=== PATIENT | female | born 1995 | race Caucasian/White ===

== ENCOUNTER 2025-07-31 11:01 | Emergency (ER) | payer OTHER, SELFPAY ==
--- NOTE | ~2025-07-31 | XR_ITS ---
EXAMINATION: XR chest 2V, 07/31/2025 11:36 CDT HISTORY: dyspnea, r sided cp, SOB x 2 days COMPARISON: No comparisons available. Technique: 2 views obtained. Findings: The lungs are clear, no effusion. No pneumothorax. Heart is normal size. Mediastinal and hilar contours are within normal limits. Bony thorax no acute abnormality. Impression: No acute cardiopulmonary abnormality. Reviewed, dictated and finalized at location P. Impression: No acute cardiopulmonary abnormality.
--- NOTE | 2025-07-31 11:16 | ECG_ITS ---
Test Date: 2025-07-31 11:27:58 Measurements Intervals [place] Rate: 73 P: 63 CO: 132 QRS: 72 QRSD: 94 T: 35 QT: 361 QTc: 399 Interpretive Statements SINUS RHYTHM MINIMAL Q WAVES- INF/LAT LEADS BASELINE ARTIFACT- I, II, III, AVR, AVL, AVF BORDERLINE ECG No previous ECG available for comparison Electronically Signed On 07-31-2025 11:47:11 CDT by Alon Rocha D.O.
[2025-07-31 11:33] VITALS: BP 128/80; PULSE 83; RESP 16; TEMP 36.6; O2SAT 100
--- NOTE | 2025-07-31 11:35 | ED.CHESTPAIN ---
HPI - Chest Pain General Chief Complaint: Upper Respiratory Infection Stated Complaint: CHEST PAIN/SOB/COUGH/CONGESTION Time Seen by Provider: 07/31/25 11:35 Source: patient and RN notes reviewed Mode of arrival: ambulatory Limitations: no limitations History of Present Illness HPI narrative: 30-year-old female presents Express Care complaining of chest pain shortness of breath that started yesterday. Patient noticed right-sided chest pain as worse with a deep breath. Patient also noticed that she is becoming short of breath going up and down stairs which is not normal for her. Patient also reports may be a slight cough and congestion. Patient denies any nausea, vomiting, diarrhea, runny nose, sore throat, earache, fevers, eczema chills or any other symptoms. Patient denies any recent traveling or major surgeries. Patient does take control. Patient denies any significant past medical history. Related Data Allergies Allergy/AdvReac Type Severity Reaction Status Date / Time No Known Allergies Allergy Verified 07/31/25 11:17 Review of Systems Review of Systems: CONSTITUTIONAL: Denies fever, body aches, chills, or sweats. EYES: Denies visual changes, redness, or discharge. ENT: Denies rhinorrhea, sore throat, or otalgia. Positive for congestion. CARDIOVASCULAR: Positive for chest pain. Negative for dizziness, lightheadedness, Palpitations, or edema. RESPIRATORY: Positive for dyspnea with exertion and cough. GASTROINTESTINAL: Denies abdominal pain, nausea, vomiting, or diarrhea. GENITOURINARY: Denies dysuria or hematuria. SKIN: Denies rash or itching. MUSCULOSKELETAL: Denies back pain, joint pain, or myalgia. NEUROLOGIC: Denies headache, numbness, or weakness. PSYCHIATRIC: Denies anxiety or depression. All other systems reviewed are negative, except as documented in HPI. PMFSH Comments At the time of my signature, I reviewed and agree with the nursing past medical, surgical, social, and family history. There is no relevant family history pertinent to the patient complaint. Exam Narrative: GENERAL: This is a well-nourished, well-developed adult, in no apparent distress. They are non ill-appearing, nontoxic appearing. HEAD: normocephalic, atraumatic. EYES: Sclera clear/white. Conjunctiva normal. Vision is grossly intact. Extraocular movements intact EARS: External ears normal, auditory canals clear and without drainage, TMs normal without perforation. Hearing grossly intact. NOSE: External nose normal with no obvious nasal discharge, nasal turbinates without redness, no rhinorrhea. THROAT: Mucous membranes moist, posterior pharynx clear, without erythema or swelling. Uvula midline. Cobblestone appearing. NECK: Neck supple, non-tender without lymphadenopathy, masses or thyromegaly. CARDIOVASCULAR: Regular rate and rhythm without murmurs, gallops, or rubs. RESPIRATORY: Clear to auscultation. Breath sounds equal bilaterally. No wheezes, rales, or rhonchi. SKIN: warm, Dry, intact with no suspicious lesions or rash, good texture and turgor. NEURO: awake, alert, and oriented to person, place and time. There were no obvious focal neurologic abnormalities. EXTREMITIES: No joint tenderness, effusion, or edema noted. BACK: Nontender without deformity. No CVA tenderness. Course Course Emergency Course: Portions of this record may have been created with voice recognition software Level of Care: Express Care Visit Vital Signs Vital signs: Vital Signs Oxygen Delivery Room Air 07/31/25 11:19 Temperature 97.9 F 07/31/25 11:33 Pulse Rate 83 07/31/25 11:33 Respiratory Rate 16 07/31/25 11:33 Blood Pressure 128/80 07/31/25 11:33 Pulse Oximetry 100 07/31/25 11:33 Oxygen Delivery Room Air 07/31/25 11:19 Reviewed Transfer Transfered to: [facility] Transportation: Other (private vehicle) Transfer rationale: Patient requires higher level care, rule out pulmonary embolism have advanced imaging, lab work. Accepting physician: Dr. Andrade MDM - Chest Pain MDM Narrative Medical decision making narrative: EKG sinus rhythm with no ischemic findings. Chest x-ray shows negative for any acute cardiopulmonary findings. Rapid COVID in flu are negative. Postnasal drip noted, no convincing evidence to explain patient's symptoms. Perc score 1. Patient takes estrogen based control. No tachycardia. Cannot rule out pulmonary embolism for this patient. Given patient's symptoms, it is recommend the patient seek a higher level care and proceed immediately to the emergency department. Patient is agreeable at [facility]. Called over to [facility] spoke to Dr. Andrade who is aware this patient and accepted the patient for transfer. Patient would go via private vehicle. Patient hemodynamically stable take herself to the hospital. Advised patient remain NPO proceed immediately to the ER. Differential Diagnosis Differential diagnosis: Likely fracture of rib, pneumothorax, stable angina, chest pain and other (Pneumothorax) Lab Data Attestation: I reviewed the patient's lab results. Labs: Lab Results 07/31/25 Range/Units 11:51 POC Influenza A Ag Negative (Negative) POC Influenza B Ag Negative (Negative) POC SARS CoV-2 Ag Negative (Negative) ECG Data EKG #1: Attestation: I personally reviewed and interpreted this ECG as follows: ECG completion date: 07/31/25 ECG completion time: 11:27 Prior ECG tracings: not available for review EKG Interpretation: normal rate, no ectopy, no ST changes, normal QRS, normal QT and NL axis Critical Care Time Critical Care Time Critical Care Time: No Discharge Plan Discharge Clinical Impression: Dyspnea on exertion Chest pain Qualifiers: Chest pain type: unspecified Qualified Code(s): R07.9 - Chest pain, unspecified Patient Disposition: Acute Care Hospital Condition: Stable Patient Language: Chilean Follow-up/Referrals: Mando,MD Mikel [Primary Care Provider] Time of Disposition: 12:06
[2025-07-31 11:55] LABS: EDCOVIDSCREEN Negative (Negative); EDINFLUASCREEN Negative (Negative); EDINFLUBSCREEN Negative (Negative)
== END 2025-07-31 12:13 | disposition short-term general hospital (02) ==
PROVIDERS: PCP Internal Medicine
DX: R06.00 Dyspnea, unspecified (principal); R07.9 Chest pain, unspecified; Z20.822 Contact with and (suspected) exposure to COVID-19
CPT/HCPCS: 71046; 87426; 87804; 93005; 99213; G0463

== ENCOUNTER 2025-07-31 12:30 | Emergency (ER) | payer OTHER, SELFPAY ==
--- NOTE | ~2025-07-31 | XR_ITS ---
EXAMINATION: XR chest 2V, 07/31/2025 13:00 CDT HISTORY: RIGHT SIDE CHEST PAIN AND SOB SINCE YESTERDAY, ASTHMA COMPARISON: No comparisons available. Technique: 2 views obtained. Findings: The lungs are clear, no effusion. No pneumothorax. Heart is normal size. Mediastinal and hilar contours are within normal limits. Bony thorax no acute abnormality. Impression: No acute cardiopulmonary abnormality. Reviewed, dictated and finalized at location P. Impression: No acute cardiopulmonary abnormality.
[2025-07-31 12:35] VITALS: BP 135/88; PULSE 76; RESP 19; TEMP 36.8; O2SAT 100
[2025-07-31 12:41] VITALS: O2SAT 100
[2025-07-31 12:42] VITALS: BP 135/88; PULSE 76; RESP 16; TEMP 36.8; O2SAT 100
--- NOTE | 2025-07-31 12:44 | ECG_ITS ---
Test Date: 2025-07-31 12:39:30 Measurements Intervals [place] Rate: 76 P: 101 [place]: 120 QRS: 86 QRSD: 90 T: 74 QT: 339 QTc: 383 Interpretive Statements SINUS RHYTHM NONSPECIFIC ST & T-WAVE ABNORMALITY- ANT/INF LEADS BASELINE ARTIFACT- I, III, AVL BORDERLINE ECG Compared to ECG 07/31/2025 11:27:58 NO SIGNIFICANT CHANGE Electronically Signed On 07-31-2025 13:32:48 CDT by Alon Rocha D.O.
[2025-07-31 13:00] LABS: Hematocrit 38.1 % (37.0-47.0); Hemoglobin 12.7 g/dL (12.0-15.0); Immature Granulocyte Percent A 0.2 % (0-0.5); Lymphocytes Absolute Auto 2.31 K/mm3 (0.9-3.2); Mean Corpuscular HGB Conc 33.3 g/dl (32-36); Mean Corpuscular Hemoglobin 28.3 pg (26-34); Mean Corpuscular Volume 85.0 fl (80-100); Nucleated Red Blood Cells Absolute Auto 0.000 K/mm3 (0.0-0.012); Nucleated Red Blood Cells Perc 0.0 % (0.0-0.2); Platelet Count Result 341 k/mm3 (150-375); Red Blood Count 4.48 M/mm3 (4.2-5.4); White Blood Count 6.2 K/mm3 (4.5-10.0)
[2025-07-31 13:12] LABS: INR 1.1; Partial Thromboplastin Time 27.3 Seconds (22.3-36.8); Prothrombin Time 13.9 Seconds (11.1-14.7)
--- OUTSIDE RECORDS SUMMARY | 2025-07-31 13:20 | XMS_ITS | Clinical Summary ---
Author Organization [facility] Address [address] [place] [address] Care Team Providers Care Coating Supervisor Name Role Phone Provider, Not On File Primary Care Provider Unav ailable Allergies No known active allergies Medications azithromycin (Zithromax) 250 MG Tablet Take 250 mg by mouth daily. 2 tab(s) daily for 1 day, then 1 tab(s) daily for days 2-5. Active Ibuprofen (Advil) 200 MG Capsule Take by mouth. Activ e methylPREDNISol one (MEDROL DOSPACK) 4 MG Tablet Therapy PackIndications :Sacroiliac pain Use as per instructions on package. 21 Tablet 4 Active Active Problems No known active problems Social History Tobacco Use Types Packs/Day Years Used Date Smoking Tobacco: Never Smokeless Tobacco: Never Tobacco Cessation:Counseling Given: Not Answered Alcohol Use Standard Drinks/Week Comments Not Currently 0 (1 standard drink = 0.6 oz pur e alcohol) Comments No Sex and Gender Information Value Date Recorded Sex Assigned at Not on file Legal Sex Female 11:06 AM [employer] INTER[employer] Gender Identity Not on file Sexual Orientation Not on file Last Filed Vital Signs Vital Sign Reading Time Taken Comments Blood Pressure 115/76 03/14/2024 3:23 PM CDT Pulse 78 03/14/2024 3:23 PM CDT Temperature 36.8 C (98.2 F) 03/14/2024 3:23 PM CDT Respiratory Rate 16 03/14/2024 3:23 PM CDT Oxygen Saturation 98% 03/14/2024 3:23 PM CDT Inhaled Oxygen Concentration - - Weight 65.8 kg (145 lb) 03/14/2024 3:23 PM CDT Height 157.5 cm (5' 2) 09/27/2022 11:34 AM FINANCIAL INTERNSHIP Body Mass Index 26.52 09/27/2022 11:34 AM [employer]CIAL INTERNS[employer]IP Plan of Treatment Health Maintenance Due Date Last Done Comments Hepatitis C Virus (HCV) Screening 1995 TdaP Immunization 1995 Hepatitis B Immunization (1 of 3 - 19+ 3-dose series) 2014 Pap Smear 02/13/2016 Human Papillomavirus (HPV) Immunization (1 - 3-dose SCDM series) 2022 Cervical Cancer Screening (CCS) 2025 HPV/Cotest 2025 Influenza Immunization (#1) 2025 SARS-COV-2 Immunization ( - season) 2025 Respiratory Syncytial Virus (RSV) Immunization (Adult) (1 - 1-dose 75+ series) 2070 Meningococcal Immunization (ACWY) Aged Out No longer eligible based on patient's age to complete this topic Pneumococcal Immunization Combined Aged Out No longer eligible based on patient's age to complete this topic Rotavirus Immunization Aged Out No lo nger eligible based on patient's age to complete this topic Insurance [address] [place] [address] [employer] SOI Care Teams Coating Supervisor Relationship Specialty Start Date End Date Provider, Not On File [place] PCP - General 03/14/24
--- OUTSIDE RECORDS SUMMARY | 2025-07-31 13:20 | XMS_ITS | Clinical Summary ---
Author Organization [facility] Address [address] [place] [address] Care Team Providers Care Dental Financial Coordinator Name Role Phone Mikel Gilmore MD Primary Care Provider [phone] Source Comments [facility],non-owned Affiliates and Associated Physician Practices is amultiple site organization consisting of ambulatory clinics and hospital sitesin [place], [place] and [place]. This disclosure is being madepursuant to the Care Everywhere program and may not contain all information available regarding this patient. Last updated 18.[facility] Allergies No known active allergies Medications * Be aware that medications may not be up to date on this document. Alwaysverify current medications with the patient. norgestimate-eth inyl estradiol (Ortho-Cyclen; Mononessa; Previfem; Sprintec) 0.25-35 MG-MCG tablet Take 1 (one) tablet by mouth once daily 84 tablet 4 03/08/2025 Active Active Problems Problem Noted Date Diagnosed Date Vitamin D deficiency 12/29/2023 02/28/2024 Overview (02/28/2024): Last Assessment & Plan: Level is low. Start on high-dose vitamin-D 07109 units oral weekly for 6 weeks and oral vitamin-D daily 5000 units with dinner thereafter. Chronic sinusitis 06/24/2015 02/28/2024 Overview (02/28/2024): Chronic sinusitis History of menorrhagia 02/06/2013 Gastroesophageal reflux disease 03/10/2010 02/28/2024 Overview (02/28/2024): Overview: Mild - taking prevacid. Sees GI @ [facility] Last Assessment & Plan: Stable. Continue on Protonix 20 mg oral daily before bedtime. Anemia 11/25/2009 02/28/2024 Overview (02/28/2024): Overview: low Hb at GI visit for reflux Premenopausal menorrhagia 10/30/20092023 DUB (dysfunctional uterine bleeding) 09/24/2008 02/28/2024 Acne 10/25/2007 02/28/2024 Family History Medical History Relation Name Comments High Cholesterol Father Diabetes - Type 2 Maternal Grandmother CAD (Coronary Artery Disease) Paternal Grandfather Relation Name Status Comments Father Maternal Grandmother Paternal Grandfather Social History Tobacco Use Types Packs/Day Years Used Date Smoking Tobacco: Never Smokeless Tobacco: Never Tobacco Cessation:Counseling Given: Not Answered Alcohol Use Standard Drinks/Week Comments Not Currently 0 (1 standard drink = 0.6 oz pur e alcohol) PHQ-2 Answer Date Recorded Patient Health Questionnaire-2 Score 0 03/06/2025 Comments No Sex and Gender Information Value Date Recorded Sex Assigned at Female 04/10/2022 7:33 PM CDT Legal Sex Female 5:44 AM PROCEDURES TECH Gender Identity Female 04/10/2022 7:33 PM CDT Sexual Orientation Lesbian 04/10/2022 7: 33 PM CDT Last Filed Vital Signs Vital Sign Reading Time Taken Comments Blood Pressure 132/78 03/08/2025 2:47 PM CDT Pulse - - Temperature - - Respiratory Rate - - Oxygen Saturation - - Inhaled Oxygen Concentration - - Weight 78.6 kg (173 lb 3.2 oz) 03/08/2025 2:47 P M CDT Height 157.5 cm (5' 2) 03/08/2025 2:47 PM CDT Body Mass Index 31.68 03/08/2025 2:47 PM CDT Plan of Treatment Upcoming Encounters Date Type Department Care Team (Late st Contact Info) Description 03/14/2026 1:30 PM CDT Office Visit [facility] - ARCHITECTURAL MANAGER [address] [place] [address] Ravi Jimenez MD [address] [place], [place] [id number] Health Maintenance Due Date Last Done Comments HIV SCREENING 2010 HEPATITIS C SCREENING 02/07/2013 DTAP/TDAP/TD VACCINES (1 - Tdap) 2014 HEPATITIS B VACCINE (1 of 3 - 19+ 3-dose series) 2014 HPV VACCINE (1 - 3-dose SCDM series) 2022 COVID-19 VACCINE ( - season) 2025 INFLUENZA VACCINE (#1) 2025 PAP SMEAR 03/08/2028 03/08/2025, 12/25, 07/27/2017, Additional history exists ZOSTER VACCINE (1 of 2) 2045 DEPRESSION SCREENING Completed 03/08/2025, 03/02/20 24 HIB VACCINE Aged Out No longer eligi ble based on patient's age to complete this topic MENINGOCOCCAL (Group B) VACCINE SHARED DECISION-MAKING Aged Out No longer eligible based on patient's age to complete this topic MENINGOCOCCAL GROUPS A/C/Y/W VACCINE Aged Out No longer eligible based on patient's age to complete this topic PNEUMOCOCCAL VACCINE Aged Out No long er eligible based on patient's age to complete this topic Procedures Procedure Name Priority Date/Time Associated Diagnosis Comments PAP IMAGE-GUIDED W HPV Routine 03/08/2025 3:02 PM CDT Well woman exam with routine gynecological exam from Last 3 Months or Most Recently Relevant to Health Maintenance Results * PAP IMAGE-GUIDED W HPV (03/08/2025 3:02 PM CDT) Case Report Gynecologic Cytology Report Case: [id number] Authorizing Provider: Ravi Jimenez MD Collected: 03/08/2025 03:02 PM Ordering Location: [facility] - Received: 03/08/2025 03:02 PM ARCHITECTURAL MANAGER First Screen: Jeremy Martinez Specimen: THINPREP - IMAGE GUIDED, Cervix/Endocervix 03/12/2025 2:53 PM CDT [facility] LMP no periods 03/12/2025 2:53 PM CDT [facility] Menstrual Status None Applicable 2:53 PM CDT [facility] Specimen Adequacy Satisfactory for evaluation, endocervical/trans formation zone component present. 03/12/2025 2:53 PM CDT [facility] Categorization Negative for intraepithelial lesion or malignancy. 03/12/2025 2:53 PM CDT [facility] Interpretation DIE CAST TECHNICIAN Negative for intraepithelial lesion or malignancy. 03/12/2025 2:53 PM CDT [facility] at 1453 CDT Pap Footnote The Pap Smear is a screening test. False positive and false negative results occur. Negative results do not preclude abnormalities, thus clinical correlation is required. This specimen was evaluated by the ThinPrep Imaging System along with an additional manual rescreening by a matrix plater and/or pathologist. 03/12/2025 2:53 PM CDT [facility] Embedded Images 2:53 PM CDT [facility] Pathology/Cytolo gy MISCELLANEOUS SAMPLES / Unknown Collection / Unknown 03/08/2025 3:02 PM CDT 03/08/2025 3:02 PM CDT us Ravi Jimenez MD LAB - PATHOLOGY/CYTOLOGY ORDERAB LES Final Result [facility] [address] [place], [place] [address] [phone] from Last 3 Months or Most Recently Relevant to Health Maintenance Insurance AETNA AETNA Care Teams Dental Financial Coordinator Relationship Specialty Start Date End Date Mikel Gilmore MD PCP - General 07/31/19
[2025-07-31 13:21] LABS: Alanine Aminotransferase 15 U/L (6-35); Albumin Level 4.3 g/dL (3.5-5.1); Alkaline Phosphatase 73 U/L (38-126); Anion Gap 9 mmol/L (4-12); Aspartate Amino Transferase 20 U/L (14-36); Bilirubin,Total 0.4 mg/dL (0.2-1.3); Blood Urea Nitrogen 10 mg/dL (7-17); Calcium 9.4 mg/dL (8.4-10.2); Carbon Dioxide 23 mmol/L (22-30); Chloride 103 mmol/L (98-107); Estimated CRCL calculation 97 ml/min; Estimated Glomerular Filt Rate > 60; Glucose 103 mg/dL (65-110); Lipase 85 U/L (23-300); Potassium 4.1 mmol/L (3.4-5.0); Sodium 135 mmol/L (137-145); Total Protein 7.8 g/dL (6.3-8.2)
[2025-07-31 13:29] LABS: Troponin I < 0.012 ng/mL (0.000-0.034)
--- NOTE | 2025-07-31 13:43 | ED_ITS ---
HPI - Chest Pain General Chief Complaint: Chest Pain Stated Complaint: CP Time Seen by Provider: 07/31/25 12:41 Source: patient Mode of arrival: ambulatory Limitations: no limitations History of Present Illness HPI narrative: 30-year-old otherwise healthy here with a complaint of right-sided chest pain associated with some shortness of breath which started with this morning. Patient states she felt a food bolus in the upper part of the abdomen , took gasx which eased the symptoms ,however woke up this morning having right sided chest pain with SOB , pain was sharp in nature. had cough which was productive mostly mucoid in nature , denies any fever or chills. Onset (ago): day(s) Prior episodes: No Pain location: subxiphoid Severity: mild Quality: sharp Relieving factors: nothing Exacerbating factors: nothing Treatment prior to arrival: none Risk Factors Coronary artery disease risk factors: none Thoracic aortic dissection risk factors: none Related Data Allergies Allergy/AdvReac Type Severity Reaction Status Date / Time No Known Allergies Allergy Verified 07/31/25 12:43 Review of Systems 2 Review of Systems: All systems reviewed & are unremarkable except as noted in HPI and below Constitutional: Constitutional: Reports no additional constitutional complaints Eyes: Eyes: Reports no additional eye complaints ENT: Reports system reviewed and no additional complaints, except as documented Cardiovascular: Cardiovascular: Reports as per HPI Respiratory: Respiratory: Reports as per HPI Gastrointestinal: Gastrointestinal: Reports no additional gastrointestinal complaints Musculoskeletal: Musculoskeletal: Reports no additional musculoskeletal complaints Exam 2 Narrative: GENERAL: Well-appearing, well-nourished, and in no acute distress. HEAD: Normocephalic, atraumatic. EYES: PERRLA and EOMI. ENT: Nares clear, no rhinorrhea or epistaxis. Mucous membranes moist. NECK: Supple. CHEST: Clear to auscultation. No respiratory distress. HEART: Regular rate and rhythm. No murmur heard. Normal peripheral pulses. ABDOMEN: Soft, nontender, nondistended, normal active bowel sounds. EXTREMITIES: Normal range of motion. No edema. SKIN: Warm, dry, no rash. NEURO: No focal deficits. Alert and oriented x3. PSYCH: Normal mood and affect. Course Course Emergency Course: Patient comfortably resting on the stretcher in no discomfort with SpO2 of 100% on room air. Informed patient and her mother about the lab work, x-ray and EKG findings. At this time pain appers to be non cardic . Vital Signs Vital signs: Vital Signs Temperature 36.8 C 07/31/25 12:35 Pulse Rate 76 07/31/25 12:35 Respiratory Rate 19 07/31/25 12:35 Blood Pressure 135/88 07/31/25 12:35 Pulse Oximetry 100 07/31/25 12:35 Oxygen Delivery Room Air 07/31/25 12:35 Temperature 36.8 C 07/31/25 12:42 Pulse Rate 76 07/31/25 12:42 Respiratory Rate 16 07/31/25 12:42 Blood Pressure 135/88 07/31/25 12:42 Pulse Oximetry 100 07/31/25 12:42 Oxygen Delivery Room Air 07/31/25 12:41 MDM - Chest Pain Differential Diagnosis Differential diagnosis: Likely atypical chest pain, chest pain and other (PE) Medical Records Data Attestation: I reviewed the patient's medical records. Lab Data Attestation: I reviewed the patient's lab results. 07/31/25 12:46 07/31/25 12:46 Labs: Lab Results 07/31/25 07/31/25 Range/Units 12:46 12:49 WBC 6.2 (4.5-10.0) K/mm3 RBC 4.48 (4.2-5.4) M/mm3 Hgb 12.7 (12.0-15.0) g/dL Hct 38.1 (37.0-47.0) % MCV 85.0 (80-100) fl MCH 28.3 (26-34) pg MCHC 33.3 (32-36) g/dl RDW 13.0 (11.5-14.5) % Plt Count 341 (150-375) k/mm3 MPV 10.1 (7.4-10.4) fl Immature Gran % (Auto) 0.2 (0-0.5) % Neut % (Auto) 53.1 (45.5-73.1) % Lymph % (Auto) 37.1 (18.3-44.2) % Runnels % (Auto) 6.1 (2.6-8.5) % Eos % (Auto) 2.9 (0-4.4) % Baso % (Auto) 0.6 (0.2-1.2) % Lymph # (Auto) 2.31 (0.9-3.2) K/mm3 Runnels # (Auto) 0.4 (0.1-0.6) K/mm3 Eos # (Auto) 0.2 (0-0.3) K/mm3 Baso # (Auto) 0.0 (0.0-0.1) K/mm3 Abs Immat Gran (auto) 0.01 (0.00-0.031) K/mm3 Absolute Neuts (auto) 3.3 (1.3-6.7) K/mm3 Absolute Nucleated RBC 0.000 (0.0-0.012) K/mm3 Nucleated RBC % 0.0 (0.0-0.2) % PT 13.9 (11.1-14.7) Seconds INR 1.1 APTT 27.3 (22.3-36.8) Seconds D-Dimer 0.30 Cancelled (<0.48) ug/mL Sodium 135 L (137-145) mmol/L Potassium 4.1 (3.4-5.0) mmol/L Chloride 103 (98-107) mmol/L Carbon Dioxide 23 (22-30) mmol/L Anion Gap 9 (4-12) mmol/L BUN 10 (7-17) mg/dL Creatinine 0.71 (0.7-1.0) mg/dL Estim Creat Clear Calc 97 ml/min Estimated GFR > 60 (59 - ) Glucose 103 (65-110) mg/dL Calcium 9.4 (8.4-10.2) mg/dL Total Bilirubin 0.4 (0.2-1.3) mg/dL AST 20 (14-36) U/L ALT 15 (6-35) U/L Alkaline Phosphatase 73 (38-126) U/L Troponin I < 0.012 (0.000-0.034) ng/mL Total Protein 7.8 (6.3-8.2) g/dL Albumin 4.3 (3.5-5.1) g/dL Lipase 85 (23-300) U/L Imaging Data Radiologist's impression: ITS Impressions Chest X-Ray 07/31/25 13:09 Impression: No acute cardiopulmonary abnormality. ECG Data EKG #1: ECG completion date: 07/31/25 ECG completion time: 12:39 EKG Interpretation: normal rate (76), sinus rhythm, no ectopy, no ST changes, normal QRS and no acute changes Discharge Plan Discharge Clinical Impression: Chest pain Qualifiers: Chest pain type: unspecified Qualified Code(s): R07.9 - Chest pain, unspecified Patient Disposition: Home Condition: Stable Instructions: Chest Pain (ED) Patient Language: Iranian Follow-up/Referrals: Mando,MD Mikel [Primary Care Provider] Time of Disposition: 14:09
[2025-07-31 14:16] VITALS: BP 113/67; PULSE 80; RESP 20; O2SAT 100
--- OUTSIDE RECORDS SUMMARY | 2025-07-31 14:28 | XMS_ITS | Clinical Summary ---
Author Organization [facility] Address [address] [place] [address] Care Team Providers Care Boilermaker Welder Name Role Phone Provider, Not On File [...] on file Legal Sex Female 11:06 AM DIRECTOR [employer] Gender Identity Not on file Sexual Orientation [...] 157.5 cm (5' 2) 09/27/2022 11:34 AM DIRECTOR [employer] Body Mass Index 26.52 09/27/2022 11:34 AM DIRECTOR [employer] Plan of Treatment Health Maintenance Due Date [...] to complete this topic Insurance [address] [place] [address] [employer] Care Teams Boilermaker Welder Relationship Specialty Start Date End Date Provider, Not On File [place] PCP - General 03/14/24
--- OUTSIDE RECORDS SUMMARY | 2025-07-31 14:28 | XMS_ITS | Clinical Summary ---
Author Organization [facility] [place] Address [address] [place] [address] Care Team Providers Care Roving Machine Operator Name Role Phone Mikel Gilmore MD Primary Care Provider [phone] Source Comments [facility],non-owned Affiliates and Associated Physician Practices is amultiple site organization consisting of ambulatory clinics and hospital sitesin [place], [place], [place] and [place]. This disclosure is being madepursuant to the Care Everywhere program and may not contain all information available regarding this patient. Last updated 18.[facility] Allergies No known active allergies Medications [...] Level is low. Start on high-dose vitamin-D 82920 units oral weekly for 6 weeks and [...] PM CDT Legal Sex Female 5:44 AM AVIONICS ENGINEER Gender Identity Female 04/10/2022 7:33 PM CDT [...] CDT Office Visit [facility] - AGENCY LEGAL COUNSEL [address] [place] [address] Ravi Jimenez MD [address] [employer] [address] [place], [place] [id number] Health Maintenance Due Date Last Done Comments [...] CDT) Case Report Gynecologic Cytology Report Case: [id number] Authorizing Provider: Ravi Jimenez MD Collected: 03/08/2025 03:02 PM Ordering Location: [facility] - Received: 03/08/2025 03:02 PM AGENCY LEGAL COUNSEL First Screen: Jeremy Martinez Specimen: THINPREP - [...] 2:53 PM CDT [facility] Interpretation FOOD AND BEVERAGE COORDINATOR Negative for intraepithelial lesion or malignancy. 03/12/2025 2:53 PM CDT [facility] at 1453 CDT Pap Footnote The Pap Smear is a screening test. False positive and false negative results occur. Negative results do not preclude abnormalities, thus clinical correlation is required. This specimen was evaluated by the ThinPrep Imaging System along with an additional manual rescreening by a green house manager and/or pathologist. 03/12/2025 2:53 PM CDT [facility] Embedded Images 2:53 PM CDT [facility] Pathology/Cytolo gy MISCELLANEOUS SAMPLES / Unknown Collection / Unknown 03/08/2025 3:02 PM CDT 03/08/2025 3:02 PM CDT us Ravi Jimenez MD LAB - PATHOLOGY/CYTOLOGY ORDERAB LES Final Result [facility] [address] [place], [place] [address] [phone] from Last 3 Months or Most Recently Relevant to Health Maintenance Insurance [employer] A[employer] Care Teams Roving Machine Operator Relationship Specialty Start Date End Date Mikel Gilmore MD PCP - General 07/31/19
== END 2025-07-31 14:17 | disposition home or self-care (01) ==
PROVIDERS: Emergency Provider Family Medicine; PCP Internal Medicine
DX: R07.9 Chest pain, unspecified (principal); R94.31 Abnormal electrocardiogram [ECG] [EKG]
CPT/HCPCS: 36415; 71046; 80053; 83690; 84484; 85025; 85380; 85610; 85730; 93005; 99284